=== PATIENT | female | born 2005 | race Caucasian/White ===

== ENCOUNTER 2024-06-28 11:23 | Emergency (ER) | payer MEDICAID ==
[~2024-06-28] VITALS: Ht 177.8 cm; Wt 68.0 kg
[2024-06-28 11:23] VITALS: BP_SYST 107; PULSE 55; RESP 18; TEMP 97.9; O2SAT 100
[2024-06-28 13:06] LABS: BASOPHILS % (AUTO) 0.5 % (0.0-2.0); EOSINOPHILS % (AUTO) 0.4 % (0.0-4.0); HEMATOCRIT 39.6 % (36-48); HEMOGLOBIN 13.1 g/dL (12.0-16.0); LYMPHOCYTES # (AUTO) 1.4 K/uL (1.0-5.5); LYMPHOCYTES % (AUTO) 15.6 % (20.5-51.5); MEAN CORPUSCULAR HEMOGLOBIN 30 pg (27-31); MEAN CORPUSCULAR HGB CONC 33 % (32-36); MEAN CORPUSCULAR VOLUME 91 fL (79.0-98.0); MONOCYTES # (AUTO) 0.4 K/uL (0.0-1.0); NEUTROPHILS # (AUTO) 6.9 K/uL (1.8-7.7); NEUTROPHILS % (AUTO) 78.5 % (40.0-70.0); PLATELET COUNT (AUTO) 320 K/uL (130-430); RED BLOOD CELL COUNT(AUTO) 4.33 MIL/uL (4.2-6.2); RED CELL DISTRIBUTION WIDTH 12.8 % (9.0-15.0); WHITE BLOOD COUNT (AUTO) 8.8 K/uL (4.5-11.0)
[2024-06-28 13:23] LABS: BILIRUBIN,DIRECT 0.3 mg/dL (0.0-0.3); CALCIUM 9.3 mg/dL (8.4-11.0); CREATININE 0.78 mg/dL (0.55-1.30); POTASSIUM 4.7 mmol/L (3.5-5.1); TOTAL BILIRUBIN 0.9 mg/dL (0.0-1.0); TOTAL PROTEIN, SERUM 6.9 g/dL (6.4-8.3)
[2024-06-28 13:42] LABS: SERUM HCG (QUALITATIVE) NEGATIVE (NEGATIVE)
[2024-06-28] MEDS ORDERED: OMEP20CA15 PO (13:42)
[2024-06-28 13:58] VITALS: BP_SYST 107; PULSE 55; RESP 18; TEMP 97.9; O2SAT 100
== END 2024-06-28 13:57 | disposition home or self-care (01) ==
LOC: SED 11:23
DX: K29.60 Other gastritis without bleeding (principal); R10.13 Epigastric pain; R11.0 Nausea; Z79.899 Other long term (current) drug therapy
CPT/HCPCS: 36415; 76705; 80048; 80076; 82150; 83605; 83690; 84703; 85025; 99284